=== PATIENT | female | born 1930 | race Caucasian/White ===

== ENCOUNTER 2016-12-10 08:39 | Emergency (ER) | payer MEDICARE, BC ==
--- NOTE | 2016-12-10 09:03 | UC ---
Lower Extremity/Ankle HPI - HPI Summary HPI Summary: complaint of red swollen area on the back of her left leg that she noticed this morning feels slightly painful and warm more painful with ambulation multiple tick bites this summer denies itching denies fever and chills not taking any medications for pain - History of Current Complaint Chief Complaint: UCSkin Stated Complaint: BUG BITE Hx Obtained From: Patient - Allergies/Home Medications Allergies/Adverse Reactions: Allergies Allergy/AdvReac Type Severity Reaction Status Date / Time Tetanus Toxoid Allergy Intermediate Hives Verified 12/10/16 08:47 Home Medications: Home Medications Levothyroxine TAB* [Synthroid TAB*] 50 mcg PO 12/10/16 [History] Rivaroxaban TAB(*) [Xarelto 10 mg (*)] 10 mg PO DAILY 12/10/16 [History Confirmed 12/10/16] PMH/Surg Hx/FS Hx/Imm Hx Previously Healthy: Yes Cardiovascular History: Hypertension, Atrial Fibrillation - Surgical History Surgical History: Yes Surgery Procedure, Year, and Place: Appendectomy as a child - Family History Known Family History: Negative: Cardiac Disease, Hypertension, Diabetes - Social History Occupation: Retired Lives: With Family Alcohol Use: None Substance Use Type: None Smoking Status (MU): Never Smoked Tobacco - Immunization History Most Recent Influenza Vaccination: 2012 Most Recent Tetanus Shot: Within 10 years Most Recent Pneumonia Vaccination: Within 5 years Review of Systems Constitutional: Negative Skin: Rash Eyes: Negative ENT: Negative Respiratory: Negative Cardiovascular: Negative Gastrointestinal: Negative Genitourinary: Negative Motor: Negative Neurovascular: Negative Musculoskeletal: Negative Neurological: Negative Psychological: Negative All Other Systems Reviewed And Are Negative: Yes Physical Exam Triage Information Reviewed: Yes Appearance: No Pain Distress, Well-Nourished Vital Signs: Initial Vital Signs Temp 97.4 F 12/10/16 08:42 Pulse 56 12/10/16 08:42 Resp 18 12/10/16 08:42 BP 118/68 12/10/16 08:42 Pulse Ox 100 12/10/16 08:42 Vital Signs Reviewed: Yes Eyes: Positive: Conjunctiva Clear ENT: Positive: Pharynx normal, TMs normal, Other: - NATIVE wearing hearing aides Neck: Positive: No Lymphadenopathy Respiratory: Positive: Lungs clear, Normal breath sounds, No respiratory distress, No accessory muscle use Cardiovascular: Positive: RRR, No Murmur, Pulses Normal Abdomen Description: Positive: Nontender, Soft Bowel Sounds: Positive: Present Musculoskeletal: Positive: Other: - LLE-edema and tenderness in soft tissue behind the knee- area of erythema approx [id number] warm to touch. No bakers cyst. Full ROM (extension/flexion). Neurological: Positive: Alert Psychological: Positive: Normal Response To Family Skin Exam: Normal Lower Extremity Course/Dx - Course Course Of Treatment: exam completed. LLE- appears to be cellulitis but possible that it could be blood clot d/t swelling and tenderness behind the knee - doppler of LLE ordered. doppler results- negative for DVT- positive politeal cyst. will treat for celluitis and possible lyme d/t tick bite with PCP followup in 3-4 days- PCP can continue doxycycline if indicated. - Differential Dx/Diagnosis Differential Diagnosis/HQI/PQRI: Cellulitis, DVT Provider Diagnoses: LLE cellulitis, popliteal cyst Discharge - Discharge Plan Condition: Stable Disposition: HOME Prescriptions: DOXYcycline CAP(*) [DOXYcycline 100MG CAP(*)] 100 mg PO BID #14 cap Patient Education Materials: Cellulitis (ED) Referrals: Khoa Mejia MD [Primary Care Provider] - Additional Instructions: Please start antibiotic as directed Make a followup appt with Dr France in 3-4 days Increase fluids and rest If area of redness increases, pain increases or you get a fever return to urgent care Take acetaminophen for pain Please review your discharge instructions. If your symptoms do not improve please call your primary care provider or return to urgent care
--- NOTE | 2016-12-10 10:19 | RAD ---
INDICATION: Pain and swelling. COMPARISON: None TECHNIQUE: Duplex interrogation of the Lowerextremity was performed. FINDINGS: Deep veins: The common femoral, great saphenous, profunda femoris, proximal, mid, and distal deep femoral, popliteal, posterior tibial, and peroneal veins are patent. There is normal compressibility, augmentation, and phasic flow. Superficial veins: There are no findings of superficial thrombophlebitis. Popliteal fossa: There is a 3.7 x 1.5 x 2.8 cm fluid collection with low-level echoes the popliteal fossa compatible with a popliteal cyst. Soft tissues:There are no soft tissue abnormalities. IMPRESSION: POPLITEAL CYST. NO EVIDENCE OF DEEP VENOUS THROMBOSIS.
[2016-12-10 10:39] VITALS: BP 131/46
== END 2016-12-10 10:40 | disposition home or self-care (01) ==
LOC: UCEAST 08:39
DX: L03.116 Cellulitis of left lower limb (principal); M71.22 Synovial cyst of popliteal space [Baker], left knee; M79.605 Pain in left leg; I48.91 Unspecified atrial fibrillation; Z79.01 Long term (current) use of anticoagulants
CPT/HCPCS: 99212; G0463

== ENCOUNTER 2017-03-24 04:11 | Inpatient (IN) | payer MEDICARE, BC ==
[2017-03-24] MEDS ORDERED: Tetan/Diph/Pertus SYR(Tdap)* 0.5 ML SYR(BOOSTRIX) use SYR IM ONE (04:20)
[2017-03-24] MEDS ORDERED: NS 0.9% 1000 ML* 1,000 ML IV ONE (04:55)
[2017-03-24] MEDS ORDERED: Aspirin Low Dose CHEW TAB* 81 MG PO ONE (04:55)
[2017-03-24 05:07] LABS: Hematocrit 38 % (35-47); Hemoglobin 12.7 g/dl (12.0-16.0); Mean Corpuscular HGB Conc 34 g/dl (31-36); Mean Corpuscular Hemoglobin 30 pg (27-31); Mean Corpuscular Volume 90 fL (80-97); Mean Platelet Volume 12 um3 (7.4-10.4); Red Blood Count 4.17 10^6/ul (4.0-5.4); Red Cell Distribution Width 13 % (10.5-15); White Blood Count 6.4 10^3/ul (3.5-10.8)
[2017-03-24 05:18] LABS: Albumin 3.8 g/dL (3.2-5.2); BUN/Creatinine Ratio 20.6 (8-20); Calcium 8.9 mg/dL (8.6-10.3); EGFR African American 66.4 (>60); EGFR Non-African American 51.6 (>60); Globulin 2.4 g/dL (2-4); Potassium 3.6 mmol/L (3.5-5.0); Total Bilirubin 0.6 mg/dL (0.2-1.0); Total Protein 6.2 g/dL (6.4-8.9)
[2017-03-24 05:19] LABS: Troponin I 0.01 ng/mL (<0.04)
[2017-03-24] MEDS ORDERED: Rocuronium* 10 MG/ML VIAL ONE ×2 (06:01→06:10)
[2017-03-24] MEDS ORDERED: fentaNYL* 50 MCG/ML 2 ML VIAL (100 MCG VIAL) ONE ×2 (06:03)
[2017-03-24] MEDS ORDERED: Mannitol 25% (12.5 GM) 50 ML* 12.5 GM/50 ML VIAL ONE ×4 (06:05→06:39)
[2017-03-24] MEDS ORDERED: Thrombin 5,000 UNITS* 1 APPLIC KIT - topical use - TOPICAL ONE ×2 (06:05→06:24)
--- NOTE | 2017-03-24 06:21 | ED ---
Stefanie Waddell Rebecca, scribed for Jese Gay on 03/24/17 at 0432 . Head Injury - HPI Summary HPI Summary: Pt is an 86 y/o F who presents to ED s/p head injury. This morning, the pt had gotten up to go to the bathroom when she slipped and had a mechanical fall, hitting her head on a vanity. Pt p/w a laceration to the forehead with bleeding and c/o an abrasion to the R elbow. Associated pain is currently severe, ranked 8/10. Denies neck pain. Pt is on Xarelto. - History Of Current Complaint Chief Complaint: EDLacSutureRecheck Stated Complaint: HEAD LAC Time Seen by Provider: 03/24/17 04:15 Hx Obtained From: Patient, Family/Annual Giving Manager - Daughter Mechanism Of Injury: Fall From A Standing Position Onset/Duration: Still Present Severity Currently: Severe Pain Intensity: 8 Pain Scale Used: 0-10 Numeric Location of Head Injury: Frontal Aggravating Factor(s): Other: - Nothing Alleviating Factor(s): Other: - Nothing Associated Signs And Symptoms: Other: - Bleeding, R elbow abrasion - Allergies/Home Medications Allergies/Adverse Reactions: Allergies Allergy/AdvReac Type Severity Reaction Status Date / Time Tetanus Toxoid Allergy Intermediate Hives Verified 03/24/17 04:50 PMH/Surg Hx/FS Hx/Imm Hx Endocrine/Hematology History: Reports: Hx Thyroid Disease Denies: Hx Diabetes Cardiovascular History: Reports: Other Cardiovascular Problems/Disorders - Afib with cardioversion Denies: Hx Congestive Heart Failure, Hx Hypertension, Hx Pacemaker/ICD Respiratory History: Denies: Hx Asthma, Hx Chronic Obstructive Pulmonary Disease (COPD), Other Respiratory Problems/Disorders GI History: Denies: Hx Ulcer Sensory History: Reports: Hx Contacts or Glasses, Hx Hearing Aid Opthamlomology History: Reports: Hx Contacts or Glasses Neurological History: Denies: Other Neuro Impairments/Disorders - Surgical History Surgery Procedure, Year, and Place: Appendectomy as a child Infectious Disease History: No Infectious Disease History: Denies: Hx Hepatitis, Hx Human Immunodeficiency Virus (HIV), Traveled Outside the [place] in Last 30 Days - Family History Known Family History: Negative: Cardiac Disease, Hypertension, Diabetes - Social History Alcohol Use: None Substance Use Type: Reports: None Hx Tobacco Use: No Smoking Status (MU): Never Smoked Tobacco Review of Systems Positive: Other - NEGATIVE: Neck pain Positive: Other - R forehead laceration with bleeding, R elbow abrasion All Other Systems Reviewed And Are Negative: Yes Physical Exam - Summary Physical Exam Summary: Appearance: Well appearing, no pain distress Skin: warm, dry, reflects adequate perfusion, abrasion on the R elbow Head/face: 3 inch laceration to the R side of the scalp Eyes: EOMI, HUMBERTO ENT: normal Neck: supple, nontender Respiratory: CTA, breath sounds present Cardiovascular: RRR, pulses symmetrical Abdomen: nontender, soft Bowel: present Musculoskeletal: no tenderness b/l, pulse present b/l Neuro: alert and confused Triage Information Reviewed: Yes Vital Signs On Initial Exam: Initial Vitals Temp Pulse Resp BP Pulse Ox 97.6 F 60 16 120/74 97 03/24/17 04:22 03/24/17 04:22 03/24/17 04:22 03/24/17 04:22 03/24/17 04:22 Vital Signs Reviewed: Yes - Elton Coma Scale Glascow Coma Scale Comments: 10 Diagnostics - Vital Signs Vital Signs Temp Pulse Resp BP Pulse Ox 03/24/17 04:22 97.6 F 60 16 120/74 97 - Laboratory Lab Results: Lab Results 03/24/17 03/24/17 03/24/17 Range/Units 04:45 04:45 04:45 WBC 6.4 (3.5-10.8) 10^3/ul RBC 4.17 (4.0-5.4) 10^6/ul Hgb 12.7 (12.0-16.0) g/dl Hct 38 (35-47) % MCV 90 (80-97) fL MCH 30 (27-31) pg MCHC 34 (31-36) g/dl RDW 13 (10.5-15) % Plt Count 123 L (150-450) 10^3/ul MPV 12 H (7.4-10.4) um3 Neut % (Auto) 43.8 (38-83) % Lymph % (Auto) 38.4 (25-47) % Stafford % (Auto) 11.1 H (1-9) % Eos % (Auto) 5.7 (0-6) % Baso % (Auto) 1.0 (0-2) % Absolute Neuts (auto) 2.8 (1.5-7.7) 10^3/ul Absolute Lymphs (auto) 2.5 (1.0-4.8) 10^3/ul Absolute Monos (auto) 0.7 (0-0.8) 10^3/ul Absolute Eos (auto) 0.4 (0-0.6) 10^3/ul Absolute Basos (auto) 0.1 (0-0.2) 10^3/ul Absolute Nucleated RBC 0 10^3/ul Nucleated RBC % 0.1 INR (Anticoag Therapy) 1.64 H (0.89-1.11) APTT 27.3 (26.0-36.3) seconds Sodium 137 (133-145) mmol/L Potassium 3.6 (3.5-5.0) mmol/L Chloride 109 (101-111) mmol/L Carbon Dioxide 21 L (22-32) mmol/L Anion Gap 7 (2-11) mmol/L BUN 21 (6-24) mg/dL Creatinine 1.02 H (0.51-0.95) mg/dL Est GFR ( Amer) 66.4 (>60) Est GFR (Non-Af Amer) 51.6 (>60) BUN/Creatinine Ratio 20.6 H (8-20) Glucose 191 H (70-100) mg/dL Lactic Acid (0.5-2.0) mmol/L Calcium 8.9 (8.6-10.3) mg/dL Total Bilirubin 0.60 (0.2-1.0) mg/dL AST 18 (13-39) U/L ALT 11 (7-52) U/L Alkaline Phosphatase 24 L (34-104) U/L Troponin I 0.01 (<0.04) ng/mL Total Protein 6.2 L (6.4-8.9) g/dL Albumin 3.8 (3.2-5.2) g/dL Globulin 2.4 (2-4) g/dL Albumin/Globulin Ratio 1.6 (1-3) TSH Cancelled Free T4 Cancelled Free T3 Cancelled Blood Type Antibody Screen 03/24/17 03/24/17 Range/Units 04:45 04:45 WBC (3.5-10.8) 10^3/ul RBC (4.0-5.4) 10^6/ul Hgb (12.0-16.0) g/dl Hct (35-47) % MCV (80-97) fL MCH (27-31) pg MCHC (31-36) g/dl RDW (10.5-15) % Plt Count (150-450) 10^3/ul MPV (7.4-10.4) um3 Neut % (Auto) (38-83) % Lymph % (Auto) (25-47) % Stafford % (Auto) (1-9) % Eos % (Auto) (0-6) % Baso % (Auto) (0-2) % Absolute Neuts (auto) (1.5-7.7) 10^3/ul Absolute Lymphs (auto) (1.0-4.8) 10^3/ul Absolute Monos (auto) (0-0.8) 10^3/ul Absolute Eos (auto) (0-0.6) 10^3/ul Absolute Basos (auto) (0-0.2) 10^3/ul Absolute Nucleated RBC 10^3/ul Nucleated RBC % INR (Anticoag Therapy) (0.89-1.11) APTT (26.0-36.3) seconds Sodium (133-145) mmol/L Potassium (3.5-5.0) mmol/L Chloride (101-111) mmol/L Carbon Dioxide (22-32) mmol/L Anion Gap (2-11) mmol/L BUN (6-24) mg/dL Creatinine (0.51-0.95) mg/dL Est GFR ( Amer) (>60) Est GFR (Non-Af Amer) (>60) BUN/Creatinine Ratio (8-20) Glucose (70-100) mg/dL Lactic Acid 1.1 (0.5-2.0) mmol/L Calcium (8.6-10.3) mg/dL Total Bilirubin (0.2-1.0) mg/dL AST (13-39) U/L ALT (7-52) U/L Alkaline Phosphatase (34-104) U/L Troponin I (<0.04) ng/mL Total Protein (6.4-8.9) g/dL Albumin (3.2-5.2) g/dL Globulin (2-4) g/dL Albumin/Globulin Ratio (1-3) TSH Free T4 Free T3 Blood Type A Positive Antibody Screen Pending Result Diagrams: 03/24/17 04:45 03/24/17 04:45 Lab Statement: Any lab studies that have been ordered have been reviewed, and results considered in the medical decision making process. - Radiology CXR Xray Interpretation: No Acute Changes Radiology Interpretation Completed By: ED Physician - CT Brain CT CT Interpretation: Positive (See Comments) - Positive for a right hemispheric subdural hematoma with maximum thickness of approximately 2.1 cm. There is subfalcine shift ot the left measuring approximately 1.4 cm. There is compression of the right lateral and third ventricles. There is also mass effect on the upper brainstem. Small amount of subdural blood also seen along the falx. Osseous structures are intact. ED physician reviewed radiology report and agrees. CT Interpretation Completed By: Radiologist - EKG 0456 Cardiac Rate: Bradycardia - 49 bpm EKG Rhythm: Sinus Bradycardia EKG Interpretation: No acute changes Re-Evaluation - Re-Evaluation First Eval Re-Evaluation Time: 04:47 Comment: Decreased responsiveness Second Eval Re-Evaluation Time: 04:52 Comment: GCS is currently 10 Head Injury Course/Dx Assessment/Plan: Pt is an 86 y/o F who presents to ED s/p head injury. This morning, the pt had gotten up to go to the bathroom when she slipped and had a mechanical fall, hitting her head on a vanity. Pt p/w a laceration to the forehead with bleeding and c/o an abrasion to the R elbow. Associated pain is currently severe, ranked 8/10. Denies neck pain. Pt is on Xarelto. Brain CT reveals a right subdural hematoma with the full report above. CXR reveals no acute findings. EKG is sinus bradycardia with no acute changes. Troponin of 0.01. In the ED course, pt received ASA, Kcentra and fluids. Discussed care of pt with PEYMAN Plata, and advised she discuss with Dr. Link immediately. Discussed care of pt with Dr. Link who will evaluate the pt in the ED and accepts her for admission. Pt will be admitted with Dx of subdural hematoma. Allergy noted. - Diagnoses Differential Diagnosis/HQI/PQRI: Cerebral Contusion, Concussion Without LOC, Hematoma, Intracranial Bleed, Laceration Provider Diagnoses: Subdural hematoma - Physician Notifications Discussed Care Of Patient With: Brandi Bullard Time Discussed With Above Provider: 04:50 Instructed by Provider To: Other - Told Brandi to discuss with Dr. Link immediately. Discussed care of pt with Dr. Link at 0455 who will evaluate the pt in the ED and advised Kcentra administration immediately. Discussed care of pt with Dr. Link again at 0557 who advised that the pt be sent upstairs. - Critical Care Time Critical Care Time: 30-74 min - 30 minutes Discharge - Discharge Plan Condition: Critical Disposition: ADMITTED TO [facility] Referrals: Khoa Mejia MD [Primary Care Provider] - The documentation as recorded by the Stefanie hernandez Rebecca accurately reflects the service I personally performed and the decisions made by Deidra mobley Emmanuel.
[2017-03-24] MEDS ORDERED: Midazolam* 1 MG/ML 5 ML VIAL (5 MG) ONE ×2 (07:10→08:10)
[2017-03-24 07:12] LABS: Hematocrit 28 % (35-47); Hemoglobin 9.5 g/dl (12.0-16.0); PCO2 Arterial 33 mmHg (35-45)
[2017-03-24] MEDS ORDERED: levETIRAcetam IV* 500 MG/5 ML VIAL ONE ×3 (07:15→07:32)
[2017-03-24 07:19] LABS: Comments Flag Yes
[2017-03-24 07:27] LABS: Potassium 3.1 mmol/L (3.5-5.0)
[2017-03-24] MEDS ORDERED: Sterile Water for Inj* 30 ML ONE (07:58)
[2017-03-24] MEDS ORDERED: Succinylcholine* 20 MG/ML 10 ML VIAL ONE (07:58)
[2017-03-24] MEDS ORDERED: Phenylephrine IV* 40 MCG/ML 10 ML SYRINGE ONE (07:58)
[2017-03-24] MEDS ORDERED: EPHEDrine (Pressors)* 50 MG/ML VIAL ONE (07:58)
[2017-03-24] MEDS ORDERED: Propofol* 10 MG/ML 20 ML BTL IV PUSH ONE (07:58)
[2017-03-24] MEDS ORDERED: levETIRAcetam IV* 1,500 MG in NS 100 mL IVPB ONE (08:00)
--- NOTE | 2017-03-24 08:07 | RAD ---
INDICATION: Laceration overlying right parietal bone after a fall. COMPARISON: CT of the brain dated February 15, 2014 TECHNIQUE: Contiguous axial sections of the brain were obtained from the skull base to the vertex without contrast. FINDINGS: There is a large right hemisphere subdural hematoma measuring up to 2 cm in thickness. This is causing mass effect including compression of the right lateral ventricles and up to 1.6 cm of right to left midline shift. Hyperdense material is seen adjacent to the falx cerebra I. There is evidence of laceration overlying the right frontoparietal bones. No significant focal osseous abnormality is present. The visualized portion of the paranasal sinuses and mastoid air cells appear clear. IMPRESSION: Large right hemisphere subdural hematoma measuring up to 2 cm in thickness causing compression of the right ventricle and up to 1.6 cm of right to left midline shift.
--- NOTE | 2017-03-24 08:12 | RAD ---
Indication: Subdural hematoma. Comparison: January 31, 2014 Technique: Semierect AP 0502 hours Report: Low lung volumes for this patient compared with the prior exam with associated crowding of the pulmonary markings. Mild although disproportionate alveolar consolidation at the LEFT lung base. Negative for pleural effusion or pneumothorax. The heart, pulmonary vasculature, and mediastinal contours are unremarkable. IMPRESSION: Low lung volumes with subsegmental atelectasis. Mild although disproportionate consolidation at the LEFT lung base could represent pneumonia.
[2017-03-24 08:17] LABS: Hematocrit 30 % (35-47); Hemoglobin 10.1 g/dl (12.0-16.0)
[2017-03-24] MEDS ORDERED: Cisatracurium* 2 MG/ML MDV 5 ML ONE (08:17)
[2017-03-24 08:19] LABS: PCO2 Arterial 35 mmHg (35-45)
[2017-03-24] MEDS ORDERED: Ondansetron INJ* 2 MG/ML VIAL IV PRN (08:40)
[2017-03-24 10:48] LABS: Hematocrit 30 % (35-47); Hemoglobin 9.8 g/dl (12.0-16.0); Mean Corpuscular HGB Conc 33 g/dl (31-36); Mean Corpuscular Hemoglobin 30 pg (27-31); Mean Corpuscular Volume 92 fL (80-97); Mean Platelet Volume 12 um3 (7.4-10.4); Red Blood Count 3.24 10^6/ul (4.0-5.4); Red Cell Distribution Width 13 % (10.5-15); White Blood Count 11.9 10^3/ul (3.5-10.8)
[2017-03-24 10:55] LABS: Add Diff/Slide Review? Slide Review Added; Comments Flag Yes
[2017-03-24] MEDS: Morphine INJ* 2 MG/ML 1 ML SYRINGE (TWO MG - NEW SYRINGE VERSION) IV PRN (11:26)
[2017-03-24 13:35] LABS: Hematocrit 28 % (35-47); Hemoglobin 9.2 g/dl (12.0-16.0); Mean Corpuscular HGB Conc 33 g/dl (31-36); Mean Corpuscular Hemoglobin 30 pg (27-31); Mean Corpuscular Volume 89 fL (80-97); Mean Platelet Volume 12 um3 (7.4-10.4); Red Cell Distribution Width 13 % (10.5-15); White Blood Count 12.3 10^3/ul (3.5-10.8)
[2017-03-24 14:14] LABS: BUN/Creatinine Ratio 23.6 (8-20); Calcium 7.7 mg/dL (8.6-10.3); EGFR African American 99.2 (>60); EGFR Non-African American 77.2 (>60); Potassium 3.8 mmol/L (3.5-5.0)
[2017-03-24] MEDS: Levothyroxine INJ* 100 MCG/5 ML VIAL IV SCH (14:48)
[2017-03-24] MEDS ORDERED: NS 0.9% 500 ML* 500 ML IV ONE (16:00)
[2017-03-24] MEDS: levETIRAcetam 500 MG IVPREMIX* 500 MG/100 ML BAG IV SCH (21:48)
[2017-03-24] MEDS ORDERED: Acetaminophen SUPP* 650 MG SUPP PR PRN (23:41)
[2017-03-25] MEDS: Chlorhexidine MOUTHWASH 0.12%* 15 ML UDC TOPICAL SCH ×6 (01:00→21:12)
--- NOTE | 2017-03-25 03:36 | CONS ---
CRITICAL CARE CONSULT: DATE OF CONSULTATION: 03/24/17 REASON FOR CONSULTATION: Postop management. HISTORY OF PRESENT ILLNESS: The patient is an 86-year-old white female with a history of atrial fibrillation, requiring long-term anticoagulation (Xarelto), who fell in the bathroom earlier in the day and struck the right side of her head on a vanity. The patient was brought to the ED and discovered to have a subdural hematoma with mass effect - was given prothrombin Complex Concentrate ( an attempt to reverse the anticoagulant effects of rivaroxaban) and was then taken to the OR, where the hematoma was evacuated. On postop admission to the ICU, the patient was unresponsive, on mechanical ventilation, and was hemodynamically stable (without pressor support). There was an ICP monitoring catheter and a adrien drain catheter emanating from the right hemicranium. PAST MEDICAL HISTORY: 1. Atrial fibrillation. 2. Hypothyroidism. 3. Hyperlipidemia. Also had recent Hx of vertigo, according to family members. OUTPATIENT MEDICATIONS: 1. Metoprolol 50 mg daily. 2. Levothyroxine 50 mcg daily. 3. Xarelto 10 mg daily. REVIEW OF SYSTEMS: Not obtainable. PHYSICAL EXAMINATION: The patient is unresponsive and intubated. Vital signs: Temp = 94.8, blood pressure = 118/70, pulse = 50, O2 sat = 100% with an FiO2 of 30%. HEENT: Pupils mid position and sluggishly reactive. There was no facial asymmetry. Right side of the scalp was covered with a surgical dressing. Adrien drain was patent. Intracranial pressure monitor revealed an ICP of -5 to -10 cm of water. Lungs: Clear. Abdomen: Soft. Extremities: Warm, not cyanotic and not edematous. LABORATORY STUDIES/DIAGNOSTIC STUDIES: Preop labs were significant for a white count 11.9, hemoglobin 9.8, platelets of 84,000. INR of 1.6. Renal function, electrolytes and liver enzymes appeared normal. EKG showed an irregular rhythm with prominent T-waves (K was 3.1). IMPRESSION: Patient is clinically stable following evacuation of a subdural hematoma. Anticoagulant status is unclear, because activated factor Xa levels are not immediately available. The efficacy of the prothrombin complex concentrated in reversing factor Xa inhibitors is uncertain. However, since the half-life of Xarelto is 12 hours, it is unlikely that there is much residual drug effect, so I do not believe that any further reversal of anticoagulant effects is necessary at this time. MANAGEMENT PLAN: Management will consist primarily of general supportive care including fluid and electrolyte management and nutritional supplementation when necessary. We will try to minimize sedation in order to minitor mental status. Will monitor intracranial pressure and notify neurosurgery is pressure exceeds 18 mmHg. Patient's daughter and granddaughter were present at the bedside, and are aware of the patient's condition and the results of the surgery. Prognosis is very guarded at this time. CRITICAL CARE TIME: 60 minutes. [id number]/[facility] #: [id number] MTDD
[2017-03-25] MEDS: Levothyroxine INJ* 100 MCG/5 ML VIAL IV SCH (05:56)
[2017-03-25 06:21] LABS: Hematocrit 26 % (35-47); Hemoglobin 9.2 g/dl (12.0-16.0); Mean Corpuscular HGB Conc 35 g/dl (31-36); Mean Corpuscular Hemoglobin 31 pg (27-31); Mean Corpuscular Volume 89 fL (80-97); Mean Platelet Volume 12 um3 (7.4-10.4); Red Blood Count 2.96 10^6/ul (4.0-5.4); Red Cell Distribution Width 13 % (10.5-15); White Blood Count 14.9 10^3/ul (3.5-10.8)
[2017-03-25 06:37] LABS: BUN/Creatinine Ratio 19.5 (8-20); Calcium 8.3 mg/dL (8.6-10.3); EGFR African American 85.4 (>60); EGFR Non-African American 66.4 (>60); Potassium 3.7 mmol/L (3.5-5.0)
[2017-03-25] MEDS ORDERED: Labetalol IV* 5 MG/ML 20 ML VIAL IV PUSH ONE (07:40)
[2017-03-25] MEDS ORDERED: Famotidine IV* 10 MG/ML 2 ML (20 mg) ONE (07:42)
--- NOTE | 2017-03-25 08:20 | RAD ---
HISTORY: Postop craniotomy COMPARISONS: March 24, 2017 TECHNIQUE: Multiple contiguous axial CT scans were obtained of the head without intravenous contrast. FINDINGS: HEMORRHAGE/INFARCT: There is a small amount of subarachnoid hemorrhage and intraventricular hemorrhage. There has been interval resolution of the right frontoparietal subdural hematoma noted on the previous examination. Elsewhere, there is no hemorrhage or acute infarct. There is trace amount residual falcine subdural hematoma. MASSES/SHIFT: There is no mass or shift. EXTRA-AXIAL SPACES: There is been interval resolution of the right frontoparietal subdural hematoma noted on the previous examination. There is trace amount of residual falcine subdural hematoma. There is a small amount of pneumocephalus with subarachnoid hemorrhage. SULCI AND VENTRICLES: There is a small amount of intraventricular hemorrhage. There is no ventriculomegaly. CEREBRUM: There are no focal parenchymal abnormalities. BRAINSTEM: There are no focal parenchymal abnormalities. CEREBELLUM: There are no focal parenchymal abnormalities. VESSELS: The vessels are grossly normal. PARANASAL SINUSES: The paranasal sinuses are clear. ORBITS: The orbits are unremarkable. BONES AND SOFT TISSUE: There is postsurgical change to the skull OTHER: None IMPRESSION: 1. THERE HAS BEEN INTERVAL RESOLUTION OF THE LARGE RIGHT FRONTOPARIETAL SUBDURAL HEMATOMA NOTED ON THE PREVIOUS EXAMINATION. 2. THERE IS TRACE AMOUNT OF RESIDUAL FALCINE SUBDURAL HEMATOMA WITH INTRAVENTRICULAR AND SUBARACHNOID HEMORRHAGE, SMALL AMOUNT OF PNEUMOCEPHALUS. THERE IS NO VENTRICULOMEGALY. 3. THERE IS BEEN INTERVAL RESOLUTION OF THE MIDLINE SHIFT 4. PRELIMINARY FINDINGS WERE REPORTED BY DR. HUI MALIK AT APPROXIMATELY 5:35 AM ON MARCH 25, 2017
[2017-03-25] MEDS: levETIRAcetam 500 MG IVPREMIX* 500 MG/100 ML BAG IV SCH ×2 (08:55→21:12)
[2017-03-25] MEDS: Morphine INJ* 2 MG/ML 1 ML SYRINGE (TWO MG - NEW SYRINGE VERSION) IV PRN (10:22)
--- NOTE | 2017-03-25 15:13 | PN ---
Progress Note - Progress Note Date of Service: 03/25/17 SOAP: Subjective: []POD # 1 S/P craniotomy for removal of large acute SDH Patient remains unresponsive on ventilator F/U CT done this AM Family conference held at 3 PM Objective: []Pupils equal reactive Breathing over the vent Decorticate posturing to painful stimulus bilaterally F/U CT shows subdural resolution but intraventricular blood as well as some peticheal subarachnoid blood diffusely Basilar cisterns tight Assessment: []She is comatose and given her presentation of herniation not likely to make a recovery to a functional state Plan: []A family discussion was held to discuss treatment options to include possible comfort care. Her was not able to be present and they would like to discuss it with him and likely arrange another conference tommorow.
--- NOTE | 2017-03-25 16:15 | PN ---
Critical Care Services: Patient has been comatose since evacuation of the subdural hematoma - the neurosurgery service believes that full recovery is very unlikely in this case, and have spoken to the family about this. Vital Signs: Temp Pulse Resp BP SpO2 FiO2 100.9 F 87 19 137/75 100 30 Physical Exam: Gen:Unresponsive without sedation. Patient intubated and on ventilator. HEENT: Pupils midposition and reactive. Lungs:Clear Cardiac: Irreg rhythm Abdomen: Extremities:Warm. No cyanosis. Neuro: Decorticate posturing in response to pain. Fluid Balance (Past 24 Hours): 03/25/17 06:59 Intake Total 2554 Output Total 2119 Balance +435 Weight 161 lb Intake: IV Fluids 2454 LR 1954 NS (0.9%) 500 IVPB 100 LR 100 Output: HOSEA #1 655 Cranial Drain 159 Horn 1305 Labs: 03/25/17 03/25/17 06:00 06:00 WBC 14.9 Hgb 9.2 Hct 26 Plt Count 117 INR (Anticoag Therapy) 1.21 Sodium 139 Potassium 3.7 Chloride 113 Carbon Dioxide 19 BUN 16 Creatinine 0.82 Glucose 207 Calcium 8.3 Studies: Head CT Scan: Intraventricular blood. Resolution of leftward shift. Nutrition: None Impression: Persistent coma following evacuation of subdural hematoma. Prognosis poor for satisfactory neurologic recovery. Plan: Continue general supportive care. Await family's decision regarding future care. Critical Care Time: 35 minutes
[2017-03-26] MEDS: Chlorhexidine MOUTHWASH 0.12%* 15 ML UDC TOPICAL SCH ×3 (01:42→10:08)
[2017-03-26] MEDS: Morphine INJ* 2 MG/ML 1 ML SYRINGE (TWO MG - NEW SYRINGE VERSION) IV PRN ×2 (01:42→15:26)
[2017-03-26] MEDS: Levothyroxine INJ* 100 MCG/5 ML VIAL IV SCH (07:47)
[2017-03-26] MEDS: levETIRAcetam 500 MG IVPREMIX* 500 MG/100 ML BAG IV SCH (09:59)
--- NOTE | 2017-03-26 14:07 | PN ---
Progress Note - Progress Note Date of Service: 03/26/17 SOAP: Subjective: []POD # 2 Remains comatose Decorticate to pain Family conference again held with present Objective: []Pupils 3mm sluggish Decorticate to pain Assessment: []Prognosis for return of function nil Recommend comfort measures only Plan: []Will make DNR Family to let us know when they want her extubated Dr. Murillo in discussion
[2017-03-26] MEDS ORDERED: Morphine PCA ADULT* 5 MG/ML 30 ML ONE (15:16)
[2017-03-26] MEDS ORDERED: LORazepam INJ* 2 MG/ML 1 ML VIAL ONE (15:30)
[2017-03-26] MEDS ORDERED: LORAZEPAM 2 MG/ML ONE (15:32)
[2017-03-26] MEDS ORDERED: Atropine 1% (ORAL/SL)* 15 ML BTL PO PRN (15:42)
[2017-03-26] MEDS ORDERED: LORazepam INJ* 2 MG/ML 1 ML VIAL IV PUSH ONE (16:00)
[2017-03-26] MEDS ORDERED: Morphine PCA 5 MG/ML * Titrate per Protocol PCA SCH (16:00)
[2017-03-26] MEDS ORDERED: Morphine INJ* 10 MG/ML 1 ML CARPUJECT IV ONE (16:00)
[2017-03-26 16:09] VITALS: BP 149/60
--- NOTE | 2017-03-26 16:24 | PN ---
Progress Note - Progress Note Date of Service: 03/26/17 Note: At request of the family, patient was extubated (at 3:30 PM) and placed on "comfort measures only" care. Is currently on morphine/ativan infusion (10mg/ 2mg hr) and appears comfortable. Systolic BP is 100 mmHg and is SpO2 is 90% on room air. Family is present at bedside.
[2017-03-26] MEDS ORDERED: LORazepam VIAL (for drip)* 100 MG in D5W 50 ML BAG* 50 ML IVPB SCH (16:30)
--- NOTE | 2017-03-26 23:14 | OP ---
OPERATIVE REPORT: DATE OF OPERATION: 03/24/17 - Inpatient, room UWE20-21. DATE OF : 34 PRIMARY SURGEON: Nick Link MD ULTRASOUND TESTER: PEYMAN Orosco ANESTHESIOLOGIST: Karis Olsen MD ANESTHESIA: General. PRE-OP DIAGNOSIS: Right acute subdural hematoma. POST-OP DIAGNOSIS: Right acute subdural hematoma. OPERATIVE PROCEDURE: Right frontotemporal parietal craniotomy with evacuation of acute subdural hematoma. DESCRIPTION OF PROCEDURE: After satisfactory general anesthesia was obtained, the patient was placed on the operating table in a supine position with the head turned toward the left side and supported on a donut headrest. A trauma craniotomy flap was then fashioned to incorporate a large scalp laceration which extended from the sphenoid alexander hole area back to the parieto-occipital area on the right side. The scalp flap started at the zygomatic arch 1 cm anterior to the tragus and was extended up in a curvilinear manner back into the parieto-occipital area and then incorporated into her scalp laceration. This scalp flap was reflected anteriorly and maintained in position with [place] retractors. The temporalis muscle and fascia was then reflected anteriorly as well. Sumner holes were placed one at the religion region, one at the mid posterior region, and one at the frontal medial aspect of the exposure, after which a free bone flap was removed. There was noted to be a large acute subdural hematoma measuring 3 to 4 cm in thickness covering the entire hemisphere. This was removed with a combination of suction and irrigation. Upon removing the subdural, there was noted to be a surface arterial bleeder at the inferior aspect of the parieto-occipital junction, which was coagulated and controlled. The wound was then thoroughly irrigated, after which a [place] intracranial pressure monitor was brought into the field and placed into the parenchyma in the frontal lobe. A ventricular catheter was placed in the subdural space and tunneled out immediately to serve as a postoperative subdural drain. The dura was then reapproximated with 4-0 Nurolon suture to include a piece of DuraGen artificial dura for additional coverage. The bone flap was replaced with the plates and screws including a central dural tack-up suture. A subgaleal drain was placed and tunneled out posteriorly. The galea was then reapproximated with 2-0 Vicryl and the skin closed with skin clips. The estimated blood loss was 200 cc and the final sponge, pad, and needle counts were correct. The patient was taken directly to the intensive care unit intubated and in critical condition. [id number]/[facility] [place] #: [id number] MTDD
--- NOTE | 2017-03-27 09:16 | CONS ---
CC: Khoa Mejia MD; Nick Link MD* PALLIATIVE CARE CONSULTATION REPORT: DATE OF CONSULT: 03/26/17 PRIMARY CARE PHYSICIAN: Khoa Mejia MD REFERRING PHYSICIAN: Nick Link MD HOSPITAL COURSE: This is an 86-year-old female with a past medical history of atrial fibrillation, on Xarelto, who presented to the emergency room on after having a mechanical fall, found to have a right hemispheric subdural hematoma with midline shift. The patient in the emergency room has received Kcentra. Neurosurgery was called and the patient was admitted by Neurosurgery for subdural hematoma, underwent evacuation with an ICP drain and catheter in place. Unfortunately, the patient has remained unresponsive and not moving any extremities. On both my encounters, I have not been able to get in touch with any of family members; however, there is a family meeting today. I did discuss terminal wean and palliative comfort care measures with Dr. Link and Dr. Murillo. At this time, the patient is unresponsive, intubated, and sedated. PAST MEDICAL HISTORY: 1. Atrial fibrillation, on anticoagulation. 2. Hypothyroidism. 3. Hyperlipidemia. 4. History of vertigo. MEDICATIONS: Inpatient medications: 1. Tylenol 650 mg every 6 hours as needed. 2. Chlorhexidine mouthwash every 4 hours. 3. Lactated Ringer's 100 mL an hour. 4. Levothyroxine 25 mcg daily. 5. Morphine 2 mg IV q.2 hours as needed. 6. Famotidine daily. 7. Keppra 500 mg q.12 hours. ALLERGIES: TETANUS TOXOID. FAMILY HISTORY: Unable to obtain. SOCIAL HISTORY: Per report, the patient lives in home, independent of her ADLs , with her . 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 Unknown about her social alcohol history. MOLST form currently is a full code. REVIEW OF SYSTEMS: Unable to obtain. PHYSICAL EXAM: Vitals: Temp 99.9, pulse rate 80, respiratory rate 15 on mechanical ventilation with 100% of oxygen, blood pressure 145/62. General: The patient is sedated and unresponsive. HEENT: Head, normocephalic. She does have an ICP drain in place. Pupils are equal and sluggish, minimally reactive. Anicteric. Oropharynx, mucous membranes are moist. ET tube in place. Respiratory: Diminished breath sounds. No wheezing, rhonchi, or rales. Cardiac: Regular rate and rhythm. Soft systolic murmur heard throughout with ectopic beats. Abdomen: Soft, nontender, nondistended. Extremities: No clubbing, cyanosis, or edema. +1 DPs. Neurologic: The patient is unable to follow commands and unresponsive. DIAGNOSTIC STUDIES/LAB DATA: White count 14.9, hemoglobin 9.2, hematocrit 26, platelets 117. INR is 1.21. Sodium 139, potassium 3.7, chloride 115, bicarb 19 , BUN 16, creatinine 0.82. Radiographic data: Most recent head CT from 03/25/17 showed there has been interval resolution of the large right frontoparietal subdural hematoma noted on the previous exam, there is trace amount of residual falcine subdural hematoma with intraventricular and subarachnoid hemorrhage, small amount of pneumocephalus, no ventriculomegaly, there has been interval resolution of midline shift. ASSESSMENT AND PLAN: This is an 86-year-old female with past medical history of atrial fibrillation, on anticoagulation, who presented due to mechanical fall , unresponsive, found to have a subdural hematoma that has since been evacuated and the patient remains unresponsive. There is a meeting today with Neurosurgery and Dr. Murillo to discuss comfort care measures with the terminal wean. Dr. Murillo suspects that she will continue to have spontaneous respirations and that continuing comfort measures as appropriate. I hope to attend this meeting. If not, I will follow up with the physicians and the family member regarding goals of care and management. Thank you for this consultation. I will follow along with you. PATIENT TIME: Greater than 60 minutes was spent doing this consultation, more than half the time spent in direct patient contact. [id number]/[facility] #: [id number] [facility]
== END 2017-03-27 03:50 | disposition expired | DRG 25 ==
LOC: ED 04:11 → OR 06:54 → ICU 08:49
PROVIDERS: ADMIT Neurological Surgery; ATTEND Neurological Surgery
PROC: 00H603Z Insertion of Infusion Device into Cerebral Ventricle, Open Approach (ICD-10-PCS; 2017-03-24)
PROC: 4A103BD Monitoring of Intracranial Pressure, Percutaneous Approach (ICD-10-PCS; 2017-03-24)
PROC: 5A1945Z Respiratory Ventilation, 24-96 Consecutive Hours (ICD-10-PCS; 2017-03-24)
PROC: 0BH17EZ Insertion of Endotracheal Airway into Trachea, Via Natural or Artificial Opening (ICD-10-PCS; 2017-03-24)
PROC: 009400Z Drainage of Intracranial Subdural Space with Drainage Device, Open Approach (ICD-10-PCS; principal; 2017-03-24 06:00)
PROC: 0BP1XDZ Removal of Intraluminal Device from Trachea, External Approach (ICD-10-PCS; 2017-03-26)
DX: S06.5X0A Traumatic subdural hemorrhage without loss of consciousness, initial encounter (principal); G93.5 Compression of brain; G93.89 Other specified disorders of brain; I48.91 Unspecified atrial fibrillation; S01.81XA Laceration without foreign body of other part of head, initial encounter; H26.9 Unspecified cataract; E03.9 Hypothyroidism, unspecified; S50.311A Abrasion of right elbow, initial encounter; W01.0XXA Fall on same level from slipping, tripping and stumbling without subsequent striking against object, initial encounter; H91.90 Unspecified hearing loss, unspecified ear; R40.2422 Glasgow coma scale score 9-12, at arrival to emergency department; E78.5 Hyperlipidemia, unspecified; S06.6X0A Traumatic subarachnoid hemorrhage without loss of consciousness, initial encounter; R40.20 Unspecified coma; Y92.002 Bathroom of unspecified non-institutional (private) residence as the place of occurrence of the external cause; Z88.7 Allergy status to serum and vaccine; Z97.4 Presence of external hearing-aid
CPT/HCPCS: 36415; 70450; 71010; 80048; 80051; 80053; 82803; 83605; 84484; 85014; 85018; 85025; 85027; 85060; 85610; 85730; 86850; 86900; 86901; 87040; 87641; 93005; 94002; 94003; 94760; A9270-GY; C1713; C1776; C9132; J0330; J2060; J2150; J2250; J2270; J2405; J2704; J3010